=== PATIENT | male | born 1965 | race Caucasian/White ===

== ENCOUNTER 2017-04-14 11:38 | Day surgery (SDC) | payer BC ==
[~2017-04-14] VITALS: Ht 185.4 cm; Wt 86.1 kg
[~2017-04-14 11:38] MED LIST: LIALDA1.2 GM PO
[2017-04-14] MEDS ORDERED: FIBER0.4 GM PO (12:14)
[2017-04-14 12:18] VITALS: BP 116/71
[2017-04-14 20:10] VITALS: BP 122/73
[2017-04-14 21:10] VITALS: BP 130/72
[2017-04-14 21:45] VITALS: BP 134/73
== END 2017-04-14 21:50 | disposition home or self-care (01) ==
LOC: SDC 11:38
DX: M21.41 Flat foot [pes planus] (acquired), right foot (principal); M66.871 Spontaneous rupture of other tendons, right ankle and foot; M76.821 Posterior tibial tendinitis, right leg; Z88.0 Allergy status to penicillin
CPT/HCPCS: 73630; 76000; C1713; J0690; J1100; J1170; J1885; J2405; J2765; J3010; S0020